=== PATIENT | male | born 1990 | race Two or more races ===

== ENCOUNTER 2016-08-06 18:48 | Emergency (ER) | payer MEDICARE, MEDICAID ==
[~2016-08-06] VITALS: Ht 170.2 cm; Wt 72.6 kg
[~2016-08-06 18:48] MED LIST: OXCA300T50 PO; PHEN32.49 PO
[2016-08-06 20:23] VITALS: BP 134/90
[2016-08-06] MEDS ORDERED: KETOROLAC TROMETH 30 MG/ML 1ML VIAL IV ONE (21:15)
== END 2016-08-06 21:38 | disposition home or self-care (01) ==
LOC: ER 18:57
DX: R51 Headache (principal); M54.5 Low back pain; F17.210 Nicotine dependence, cigarettes, uncomplicated; Y08.89XA Assault by other specified means, initial encounter; Y93.89 Activity, other specified; Y99.8 Other external cause status; Y92.89 Other specified places as the place of occurrence of the external cause
CPT/HCPCS: 70450; 96374; 99284; J1885

== ENCOUNTER 2019-04-11 09:19 | Emergency (ER) | payer MEDICAID, MEDICARE ==
[~2019-04-11 09:19] MED LIST changes: +PHEN32.44 PO; -PHEN32.49 PO
[2019-04-11 09:25] VITALS: BP 124/73
== END 2019-04-11 12:02 | disposition home or self-care (01) ==
LOC: ER 09:19
DX: J06.9 Acute upper respiratory infection, unspecified (principal); J45.909 Unspecified asthma, uncomplicated; F17.210 Nicotine dependence, cigarettes, uncomplicated

== ENCOUNTER → 2019-04-27 | Emergency (ER) | payer MEDICARE, MEDICAID ==
[~2019-04-27] VITALS: Ht 154.9 cm; Wt 72.6 kg
[2019-04-27 12:05] LABS: Basophils # (auto) 0 uL; Eosinophils # (auto) 0 uL; Eosinophils % (auto) 0.7 % (0.0-7.0); Hemoglobin 15.8 g/dL (13.5-17.5); Lymphocytes # (auto) 1.2 uL; Lymphocytes % (auto) 24.3 % (10.0-50.0); Mean Corpuscular Hemoglobin 30.6 pg (28.0-32.0); Mean Corpuscular Hgb Conc. 33.7 g/dL (32.0-36.0); Mean Corpuscular Volume 90.8 fL (80.0-100.0); Monocytes # (auto) 0.3 uL; Monocytes % (auto) 5.9 % (0.0-12.0); Neutrophils # (auto) 3.4 uL; Neutrophils % (auto) 68.1 % (37.0-80.0); Nucleated Red Blood Cells % 0.1 %; Platelet Count (auto) 171 10^3/uL (140-450); Red Blood Cells 5.18 10^6/uL (4.5-5.90); White Blood Cell 4.9 10^3/uL (4.4-10.8)
[2019-04-27 12:22] LABS: BUN/Creatinine Ratio 16.9; Calcium 8.7 mg/dL (8.5-10.1); Potassium 3.4 mmol/L (3.5-5.1)
[2019-04-27 12:34] LABS: Bilirubin, Total 0.3 mg/dL (0.2-1.0); Total Protein 7.9 g/dL (6.4-8.2)
[2019-04-27 13:54] VITALS: BP 101/57
== END | disposition home or self-care (01) ==
LOC: ER 11:17
DX: R56.9 Unspecified convulsions (principal); J45.909 Unspecified asthma, uncomplicated
CPT/HCPCS: 36415; 80053; 80184; 85025

== ENCOUNTER → 2019-06-19 | Emergency (ER) | payer MEDICARE, MEDICAID ==
[~2019-06-19] VITALS: Ht 154.9 cm; Wt 78.5 kg
[~2019-06-19] MED LIST changes: +ACETAMINOPHEN 500 MG TAB PO ONE; +LORazepam 2MG/ML-1ML VIAL IV ONE; +PHENobarbital SODIUM 130 MG/ML VL IV ONE
[2019-06-19 23:51] LABS: Basophils # (auto) 0.1 10 ^3/uL (0-0.2); Eosinophils # (auto) 0.4 10 ^3/uL (0-0.8); Eosinophils % (auto) 4.3 % (0.0-7.0); Hematocrit 46.6 % (41.0-53.0); Hemoglobin 15.9 g/dL (13.5-17.5); Lymphocytes # (auto) 4.2 10 ^3/uL (0.4-5.4); Lymphocytes % (auto) 49.1 % (10.0-50.0); Mean Corpuscular Hemoglobin 31.1 pg (28.0-32.0); Mean Corpuscular Hgb Conc. 34.2 g/dL (32.0-36.0); Mean Corpuscular Volume 90.9 fL (80.0-100.0); Monocytes # (auto) 0.6 10 ^3/uL (0-1.3); Monocytes % (auto) 7.1 % (0.0-12.0); Neutrophils # (auto) 3.3 10 ^3/uL (1.6-8.6); Neutrophils % (auto) 38.5 % (37.0-80.0); Nucleated Red Blood Cells % 0.1 %; Platelet Count (auto) 186 10^3/uL (140-450); Red Blood Cells 5.12 10^6/uL (4.5-5.90); Red Cell Distribution Width 13.9 % (11.8-14.3); White Blood Cell 8.6 10^3/uL (4.4-10.8)
[2019-06-19 23:52] VITALS: BP 123/76
[2019-06-20 00:10] LABS: Alanine Aminotransferase 25 U/L (16-61); Albumin 4.1 g/dL (3.4-5.0); Anion Gap 12 (5-15); Aspartate Aminotransferase 16 U/L (15-37); BUN/Creatinine Ratio 11.2; Blood Urea Nitrogen 11 mg/dL (7-18); Calcium 8.4 mg/dL (8.5-10.1); Carbon Dioxide 20 mmol/L (21-32); Chloride 108 mmol/L (98-107); GFR African American 115 mL/min; GFR Non-African American 95 mL/min; Glucose 108 mg/dL (74-106); Potassium 3.5 mmol/L (3.5-5.1); Sodium 140 mmol/L (136-145)
[2019-06-20 00:13] LABS: Alkaline Phosphatase 86 U/L (45-117); Bilirubin, Total < 0.1 mg/dL (0.2-1.0); Total Protein 7.8 g/dL (6.4-8.2)
== END | disposition home or self-care (01) ==
LOC: EDUNIT# 22:41 → EDBD 22:41 → ER 22:47
DX: G40.409 Other generalized epilepsy and epileptic syndromes, not intractable, without status epilepticus (principal); J45.909 Unspecified asthma, uncomplicated; S06.9X0D Unspecified intracranial injury without loss of consciousness, subsequent encounter; V49.9XXD Car occupant (driver) (passenger) injured in unspecified traffic accident, subsequent encounter
CPT/HCPCS: 36415; 80053; 80184; 85025; 96374; 96375; 99284; J2060

== ENCOUNTER 2019-08-07 11:28 | Emergency (ER) | payer MEDICARE, MEDICAID ==
[~2019-08-07] VITALS: Ht 154.9 cm; Wt 76.7 kg
[~2019-08-07 11:28] MED LIST changes: -ACETAMINOPHEN 500 MG TAB PO ONE; -LORazepam 2MG/ML-1ML VIAL IV ONE; -PHENobarbital SODIUM 130 MG/ML VL IV ONE
[2019-08-07 13:00] VITALS: BP 136/89
[2019-08-07] MEDS ORDERED: AZITHROMYCIN 250 MG TAB PO ONE (14:30)
[2019-08-07] MEDS ORDERED: cefTRIAXone SODIUM 250 MG VL IM ONE (14:30)
[2019-08-07] MEDS ORDERED: LIDOCAINE 1% HCL (LOCAL ANESTH.) INJ 20ML MDV ONE (15:57)
== END 2019-08-07 16:10 | disposition home or self-care (01) ==
LOC: ER 11:28
DX: N39.0 Urinary tract infection, site not specified (principal); J45.909 Unspecified asthma, uncomplicated; Z79.899 Other long term (current) drug therapy
CPT/HCPCS: 96372; 99283; J0696; J2001

== ENCOUNTER 2019-10-16 06:37 | Emergency (ER) | payer MEDICARE, MEDICAID ==
[~2019-10-16] VITALS: Ht 154.9 cm; Wt 72.6 kg
[2019-10-16] MEDS ORDERED: SODIUM CHLORIDE 0.9% 1,000 ML IV ONE ×2 (06:44→06:54)
[2019-10-16] MEDS ORDERED: LORazepam 2MG/ML-1ML VIAL IV ONE (07:00)
[2019-10-16 08:16] LABS: Basophils # (auto) 0 10 ^3/uL (0-0.2); Basophils % (auto) 0.8 % (0.0-2.0); Eosinophils # (auto) 0.1 10 ^3/uL (0-0.8); Eosinophils % (auto) 2.4 % (0.0-7.0); Hematocrit 47.1 % (41.0-53.0); Hemoglobin 15.7 g/dL (13.5-17.5); Lymphocytes # (auto) 1.6 10 ^3/uL (0.4-5.4); Lymphocytes % (auto) 33.3 % (10.0-50.0); Mean Corpuscular Hemoglobin 30.4 pg (28.0-32.0); Mean Corpuscular Hgb Conc. 33.4 g/dL (32.0-36.0); Mean Corpuscular Volume 91.1 fL (80.0-100.0); Monocytes # (auto) 0.3 10 ^3/uL (0-1.3); Monocytes % (auto) 7.1 % (0.0-12.0); Neutrophils # (auto) 2.6 10 ^3/uL (1.6-8.6); Neutrophils % (auto) 56.4 % (37.0-80.0); Nucleated Red Blood Cells % 0.1 %; Platelet Count (auto) 157 10^3/uL (140-450); Red Blood Cells 5.17 10^6/uL (4.5-5.90); White Blood Cell 4.7 10^3/uL (4.4-10.8)
[2019-10-16 08:34] LABS: Urine Bacteria FEW /hpf (None Seen); Urine Blood Negative /uL (Negative); Urine Mucus FEW (None Seen); Urine Specific Gravity 1.019 (1.001-1.035); Urine WBC <1 /hpf (0 - 3)
[2019-10-16 08:40] LABS: Potassium 3.9 mmol/L (3.5-5.1)
[2019-10-16 08:48] LABS: Amphetamine Screen, Urine NEGATIVE (NEGATIVE); Barbiturate Scree,Urine NEGATIVE (NEGATIVE); Benzodiazephine Screen, Urine NEGATIVE (NEGATIVE); Cannabinoid Screen, Urine NEGATIVE (NEGATIVE); Cocaine Screen, Urine NEGATIVE (NEGATIVE); Opiate Scree,Urine NEGATIVE (NEGATIVE); Phencyclidine Screen, Urine NEGATIVE (NEGATIVE)
[2019-10-16 08:48] LABS: Albumin 3.8 g/dL (3.4-5.0); BUN/Creatinine Ratio 16.3; Bilirubin, Total 0.4 mg/dL (0.2-1.0); Calcium 8.5 mg/dL (8.5-10.1); Total Protein 7.3 g/dL (6.4-8.2)
[2019-10-16 09:00] VITALS: BP 117/77
[2019-10-16 09:08] LABS: Alcohol, Urine < 0.3 mg/dL (0-10)
== END 2019-10-16 09:24 | disposition home or self-care (01) ==
LOC: EDBD 06:37 → ER 06:37
DX: G40.409 Other generalized epilepsy and epileptic syndromes, not intractable, without status epilepticus (principal); F41.9 Anxiety disorder, unspecified; J45.909 Unspecified asthma, uncomplicated
CPT/HCPCS: 36415; 70450; 80053; 80307; 81001; 85025; 96361; 96374; 99284; J2060; J7030

== ENCOUNTER 2019-11-22 03:40 | Emergency (ER) | payer MEDICARE, MEDICAID ==
[~2019-11-22] VITALS: Ht 154.9 cm; Wt 86.2 kg
[2019-11-22 04:02] VITALS: BP 115/78
[2019-11-22 04:29] LABS: Basophils # (auto) 0.1 10 ^3/uL (0-0.2); Eosinophils # (auto) 0.2 10 ^3/uL (0-0.8); Eosinophils % (auto) 3.5 % (0.0-7.0); Hematocrit 46.2 % (41.0-53.0); Hemoglobin 15.5 g/dL (13.5-17.5); Lymphocytes % (auto) 39.2 % (10.0-50.0); Mean Corpuscular Hemoglobin 30.6 pg (28.0-32.0); Mean Corpuscular Hgb Conc. 33.6 g/dL (32.0-36.0); Mean Corpuscular Volume 91.3 fL (80.0-100.0); Monocytes # (auto) 0.4 10 ^3/uL (0-1.3); Monocytes % (auto) 7.7 % (0.0-12.0); Neutrophils # (auto) 2.5 10 ^3/uL (1.6-8.6); Neutrophils % (auto) 48.6 % (37.0-80.0); Nucleated Red Blood Cells % 0.1 %; Platelet Count (auto) 152 10^3/uL (140-450); Red Blood Cells 5.06 10^6/uL (4.5-5.90); Red Cell Distribution Width 13.4 % (11.8-14.3); White Blood Cell 5.1 10^3/uL (4.4-10.8)
[2019-11-22 04:50] LABS: Albumin 3.6 g/dL (3.4-5.0); Calcium 8.7 mg/dL (8.5-10.1); Potassium 3.9 mmol/L (3.5-5.1)
[2019-11-22 04:54] LABS: BUN/Creatinine Ratio 14.5; Bilirubin, Total 0.2 mg/dL (0.2-1.0); Total Protein 7.3 g/dL (6.4-8.2)
== END 2019-11-22 07:33 | disposition home or self-care (01) ==
LOC: EDBD 03:40 → ER 03:41
DX: G40.909 Epilepsy, unspecified, not intractable, without status epilepticus (principal); J45.909 Unspecified asthma, uncomplicated; Z79.899 Other long term (current) drug therapy
CPT/HCPCS: 36415; 80053; 85025; 93005

== ENCOUNTER 2021-12-10 22:09 | Emergency (ER) | payer MEDICARE, MEDICAID ==
[~2021-12-10] VITALS: Ht 154.9 cm; Wt 82.0 kg
[2021-12-11 00:11] LABS: Basophils # (auto) 0.1 10 ^3/uL (0-0.2); Basophils % (auto) 1.4 % (0.0-2.0); Eosinophils # (auto) 0.2 10 ^3/uL (0-0.8); Eosinophils % (auto) 2.8 % (0.0-7.0); Hematocrit 43.8 % (41.0-53.0); Lymphocytes # (auto) 2.7 10 ^3/uL (0.4-5.4); Lymphocytes % (auto) 46.1 % (10.0-50.0); Mean Corpuscular Hemoglobin 30.8 pg (28.0-32.0); Mean Corpuscular Hgb Conc. 34.3 g/dL (32.0-36.0); Mean Corpuscular Volume 89.6 fL (80.0-100.0); Monocytes # (auto) 0.4 10 ^3/uL (0-1.3); Monocytes % (auto) 7.3 % (0.0-12.0); Neutrophils # (auto) 2.5 10 ^3/uL (1.6-8.6); Neutrophils % (auto) 42.4 % (37.0-80.0); Nucleated Red Blood Cells % 0.1 %; Red Blood Cells 4.88 10^6/uL (4.5-5.90); Red Cell Distribution Width 13.3 % (11.8-14.3); White Blood Cell 5.9 10^3/uL (4.4-10.8)
[2021-12-11 00:33] LABS: Albumin 3.5 g/dL (3.4-5.0); Anion Gap 8 (5-15); Calcium 8.2 mg/dL (8.5-10.1); Carbon Dioxide 25 mmol/L (21-32); Chloride 109 mmol/L (98-107); Glucose 132 mg/dL (74-106); Potassium 3.3 mmol/L (3.5-5.1); Sodium 142 mmol/L (136-145)
[2021-12-11 00:36] LABS: Alanine Aminotransferase 30 U/L (16-61); Aspartate Aminotransferase 17 U/L (15-37); BUN/Creatinine Ratio 18.4; Blood Alcohol < 3.0 mg/dL (0-5); Blood Urea Nitrogen 14 mg/dL (7-18); GFR African American 152 mL/min; GFR Non-African American 126 mL/min
[2021-12-11 00:38] LABS: Acetaminophen < 2.0 ug/mL (10-30); Salicylate < 1.7 mg/dL (2.8-20.0)
[2021-12-11 00:39] LABS: Alkaline Phosphatase 73 U/L (45-117); Bilirubin, Total 0.2 mg/dL (0.2-1.0); Total Protein 6.7 g/dL (6.4-8.2)
[2021-12-11] MEDS ORDERED: levETIRAcetam 500 MG/5ML INJ IV ONE (04:14)
[2021-12-11 08:00] VITALS: BP 113/71
== END 2021-12-11 08:29 | disposition home or self-care (01) ==
LOC: ER 22:09 → EDBD 22:09 → ER 12-11 08:29
DX: G40.409 Other generalized epilepsy and epileptic syndromes, not intractable, without status epilepticus (principal); J45.909 Unspecified asthma, uncomplicated; Z86.69 Personal history of other diseases of the nervous system and sense organs
CPT/HCPCS: 36415; 70450; 71045; 80053; 80320; 80329; 82962; 84484; 85025; 93005; 96365; 99285; J1953; J7060

== ENCOUNTER 2022-01-21 10:15 | Inpatient (IN) | payer MEDICARE, MEDICAID ==
[~2022-01-21] VITALS: Ht 162.6 cm; Wt 83.6 kg
[2022-01-21] MEDS ORDERED: LORazepam 2MG/ML-1ML VIAL ONE (10:21)
[2022-01-21] MEDS ORDERED: LORazepam 2MG/ML-1ML VIAL IV ONE (10:30)
[2022-01-21] MEDS ORDERED: SODIUM CHLORIDE 0.9% 1,000 ML IV ONE (10:30)
[2022-01-21 10:46] LABS: Basophils # (auto) 0 10 ^3/uL (0-0.2); Eosinophils # (auto) 0 10 ^3/uL (0-0.8); Eosinophils % (auto) 0.5 % (0.0-7.0); Hematocrit 47.1 % (41.0-53.0); Hemoglobin 15.9 g/dL (13.5-17.5); Lymphocytes # (auto) 0.9 10 ^3/uL (0.4-5.4); Lymphocytes % (auto) 18.8 % (10.0-50.0); Mean Corpuscular Hemoglobin 30.5 pg (28.0-32.0); Mean Corpuscular Hgb Conc. 33.7 g/dL (32.0-36.0); Mean Corpuscular Volume 90.5 fL (80.0-100.0); Monocytes # (auto) 0.3 10 ^3/uL (0-1.3); Monocytes % (auto) 6.4 % (0.0-12.0); Neutrophils # (auto) 3.6 10 ^3/uL (1.6-8.6); Neutrophils % (auto) 73.3 % (37.0-80.0); Nucleated Red Blood Cells % 0.2 %; Red Cell Distribution Width 13.8 % (11.8-14.3); White Blood Cell 4.9 10^3/uL (4.4-10.8)
[2022-01-21 11:45] LABS: Albumin 3.9 g/dL (3.4-5.0); BUN/Creatinine Ratio 13.2; Bilirubin, Total 0.4 mg/dL (0.2-1.0); Calcium 8.8 mg/dL (8.5-10.1); Potassium 3.8 mmol/L (3.5-5.1); Total Protein 7.2 g/dL (6.4-8.2)
[2022-01-21] MEDS ORDERED: ACETAMINOPHEN 325 MG TAB PO PRN (12:45)
[2022-01-21] MEDS ORDERED: LORazepam 2MG/ML-1ML VIAL IV PRN (12:45)
[2022-01-21] MEDS ORDERED: PHENobarbital SODIUM INJ 600 MG in SODIUM CHL 0.9% 100 ML IV ONE (14:00)
[2022-01-21] MEDS: OXcarbazepine 300 MG TAB PO SCH ×2 (14:10→22:07)
[2022-01-21] MEDS: PHENobarbital 32.4 MG TAB PO SCH ×2 (14:10→22:07)
[2022-01-21] MEDS: SODIUM CHLORIDE 0.9% 1,000 ML IV SCH (18:24)
[2022-01-21 23:54] VITALS: BP 105/71
[2022-01-22 00:30] LABS: Alcohol, Urine < 3.0 mg/dL (0-10); Amphetamine Screen, Urine NEGATIVE (NEGATIVE); Barbiturate Scree,Urine POSITIVE (NEGATIVE); Benzodiazephine Screen, Urine NEGATIVE (NEGATIVE); Cannabinoid Screen, Urine NEGATIVE (NEGATIVE); Cocaine Screen, Urine NEGATIVE (NEGATIVE); Opiate Scree,Urine NEGATIVE (NEGATIVE); Phencyclidine Screen, Urine NEGATIVE (NEGATIVE)
[2022-01-22 00:52] LABS: Urine Bacteria NONE SEEN /hpf (None Seen); Urine Blood Negative /uL (Negative); Urine Specific Gravity 1.019 (1.001-1.035); Urine WBC 1 /hpf (0 - 3)
[2022-01-22 05:00] VITALS: BP 96/48
[2022-01-22] MEDS: SODIUM CHLORIDE 0.9% 1,000 ML IV SCH (05:20)
[2022-01-22 07:07] LABS: Basophils # (auto) 0 10 ^3/uL (0-0.2); Basophils % (auto) 0.8 % (0.0-2.0); Eosinophils # (auto) 0.1 10 ^3/uL (0-0.8); Eosinophils % (auto) 3.1 % (0.0-7.0); Hematocrit 45.8 % (41.0-53.0); Hemoglobin 15.2 g/dL (13.5-17.5); Lymphocytes # (auto) 0.9 10 ^3/uL (0.4-5.4); Lymphocytes % (auto) 23.3 % (10.0-50.0); Mean Corpuscular Hemoglobin 30.3 pg (28.0-32.0); Mean Corpuscular Hgb Conc. 33.1 g/dL (32.0-36.0); Mean Corpuscular Volume 91.7 fL (80.0-100.0); Monocytes # (auto) 0.4 10 ^3/uL (0-1.3); Monocytes % (auto) 9.8 % (0.0-12.0); Neutrophils # (auto) 2.4 10 ^3/uL (1.6-8.6); Nucleated Red Blood Cells % 0.1 %; Red Cell Distribution Width 13.8 % (11.8-14.3); White Blood Cell 3.8 10^3/uL (4.4-10.8)
[2022-01-22 07:37] LABS: Albumin 3.1 g/dL (3.4-5.0); BUN/Creatinine Ratio 16.9; Bilirubin, Total 0.4 mg/dL (0.2-1.0); Calcium 7.7 mg/dL (8.5-10.1); Potassium 3.8 mmol/L (3.5-5.1); Total Protein 5.8 g/dL (6.4-8.2)
[2022-01-22 09:00] VITALS: BP 120/79
[2022-01-22] MEDS ORDERED: ENOXAPARIN SOD 40 MG/0.4 ML SYRINGE SC SCH (10:00)
[2022-01-22] MEDS: OXcarbazepine 300 MG TAB PO SCH (10:34)
[2022-01-22] MEDS: PHENobarbital 32.4 MG TAB PO SCH (10:34)
== END 2022-01-22 13:54 | disposition left against medical advice (07) | DRG 101 ==
LOC: ER 10:15 → EDBD 10:15 → OVERFLOW 12:34 → EAST 23:19
PROVIDERS: ADMIT Nurse Practitioner Family; ATTEND Family Medicine
DX: G40.909 Epilepsy, unspecified, not intractable, without status epilepticus (principal); J45.909 Unspecified asthma, uncomplicated; Z53.29 Procedure and treatment not carried out because of patient's decision for other reasons; Z83.3 Family history of diabetes mellitus; Z87.891 Personal history of nicotine dependence; Z20.822 Contact with and (suspected) exposure to COVID-19; Z91.199 Patient's noncompliance with other medical treatment and regimen due to unspecified reason
CPT/HCPCS: 36415; 70450; 71045; 80053; 80184; 80307; 81001; 84484; 85025; 87426; 93005; 96361; 96365; G0378

== ENCOUNTER 2022-03-24 13:49 | Emergency (ER) | payer MEDICARE, MEDICAID ==
[~2022-03-24] VITALS: Ht 154.9 cm; Wt 81.7 kg
[2022-03-24 14:54] LABS: Basophils # (auto) 0.1 10 ^3/uL (0-0.2); Basophils % (auto) 0.7 % (0.0-2.0); Eosinophils # (auto) 0.1 10 ^3/uL (0-0.8); Eosinophils % (auto) 1.3 % (0.0-7.0); Hematocrit 47.7 % (41.0-53.0); Hemoglobin 16.2 g/dL (13.5-17.5); Lymphocytes # (auto) 2.1 10 ^3/uL (0.4-5.4); Lymphocytes % (auto) 25.3 % (10.0-50.0); Mean Corpuscular Hemoglobin 31.1 pg (28.0-32.0); Mean Corpuscular Hgb Conc. 34.1 g/dL (32.0-36.0); Mean Corpuscular Volume 91.4 fL (80.0-100.0); Monocytes # (auto) 0.5 10 ^3/uL (0-1.3); Monocytes % (auto) 6.4 % (0.0-12.0); Neutrophils # (auto) 5.4 10 ^3/uL (1.6-8.6); Neutrophils % (auto) 66.3 % (37.0-80.0); Nucleated Red Blood Cells % 0.1 %; Red Blood Cells 5.21 10^6/uL (4.5-5.90); Red Cell Distribution Width 13.5 % (11.8-14.3); White Blood Cell 8.1 10^3/uL (4.4-10.8)
[2022-03-24 14:56] LABS: Albumin 4.1 g/dL (3.4-5.0); BUN/Creatinine Ratio 21.9; Calcium 9.3 mg/dL (8.5-10.1); Potassium 4.2 mmol/L (3.5-5.1)
[2022-03-24 16:00] LABS: Bilirubin, Total 0.3 mg/dL (0.2-1.0); Total Protein 7.6 g/dL (6.4-8.2)
[2022-03-24 16:23] LABS: Urine Bacteria NONE SEEN /hpf (None Seen); Urine Blood Negative /uL (Negative); Urine WBC <1 /hpf (0 - 3)
[2022-03-24 17:39] VITALS: BP 124/73
== END 2022-03-24 17:40 | disposition home or self-care (01) ==
LOC: ER 13:49
DX: R10.12 Left upper quadrant pain (principal); R07.81 Pleurodynia; J45.909 Unspecified asthma, uncomplicated; Z79.899 Other long term (current) drug therapy
CPT/HCPCS: 36415; 74176; 80053; 81001; 85025

== ENCOUNTER 2022-04-08 09:23 | Emergency (ER) | payer MEDICARE, MEDICAID ==
[~2022-04-08] VITALS: Ht 157.5 cm; Wt 80.0 kg
[2022-04-08] MEDS ORDERED: LORazepam 2MG/ML-1ML VIAL ONE (09:35)
[2022-04-08] MEDS ORDERED: LORazepam 2MG/ML-1ML VIAL IV ONE (09:45)
[2022-04-08 10:06] LABS: Basophils # (auto) 0 10 ^3/uL (0-0.2); Basophils % (auto) 0.9 % (0.0-2.0); Eosinophils # (auto) 0 10 ^3/uL (0-0.8); Eosinophils % (auto) 0.6 % (0.0-7.0); Hematocrit 47.7 % (41.0-53.0); Hemoglobin 15.6 g/dL (13.5-17.5); Lymphocytes # (auto) 1.6 10 ^3/uL (0.4-5.4); Lymphocytes % (auto) 31.5 % (10.0-50.0); Mean Corpuscular Hemoglobin 30.3 pg (28.0-32.0); Mean Corpuscular Hgb Conc. 32.6 g/dL (32.0-36.0); Mean Corpuscular Volume 92.7 fL (80.0-100.0); Monocytes # (auto) 0.3 10 ^3/uL (0-1.3); Monocytes % (auto) 5.5 % (0.0-12.0); Neutrophils % (auto) 61.5 % (37.0-80.0); Nucleated Red Blood Cells % 0.1 %; Red Blood Cells 5.15 10^6/uL (4.5-5.90); Red Cell Distribution Width 13.4 % (11.8-14.3); White Blood Cell 4.9 10^3/uL (4.4-10.8)
[2022-04-08 10:23] LABS: Potassium 3.6 mmol/L (3.5-5.1)
[2022-04-08] MEDS ORDERED: SODIUM CHLORIDE 0.9% 1,000 ML IV ONE (10:30)
[2022-04-08 10:31] LABS: Albumin 4.1 g/dL (3.4-5.0); Bilirubin, Total 0.4 mg/dL (0.2-1.0); Calcium 8.4 mg/dL (8.5-10.1); Total Protein 7.4 g/dL (6.4-8.2)
[2022-04-08 10:53] LABS: Blood Alcohol < 3.0 mg/dL (0-5); Magnesium 1.9 mg/dL (1.6-2.6)
[2022-04-08 13:17] LABS: Urine Bacteria NONE SEEN /hpf (None Seen); Urine Blood Negative /uL (Negative); Urine Mucus FEW (None Seen); Urine Specific Gravity 1.013 (1.001-1.035); Urine WBC 1 /hpf (0 - 3)
[2022-04-08 13:26] LABS: Alcohol, Urine < 3.0 mg/dL (0-10); Amphetamine Screen, Urine NEGATIVE (NEGATIVE); Barbiturate Scree,Urine NEGATIVE (NEGATIVE); Benzodiazephine Screen, Urine NEGATIVE (NEGATIVE); Cannabinoid Screen, Urine NEGATIVE (NEGATIVE); Cocaine Screen, Urine NEGATIVE (NEGATIVE); Opiate Scree,Urine NEGATIVE (NEGATIVE); Phencyclidine Screen, Urine NEGATIVE (NEGATIVE)
[2022-04-08 16:00] VITALS: BP 133/76
[2022-04-08] MEDS ORDERED: PHENobarbital 32.4 MG TAB PO ONE (16:15)
== END 2022-04-08 16:30 | disposition home or self-care (01) ==
LOC: ER 09:23
DX: G40.909 Epilepsy, unspecified, not intractable, without status epilepticus (principal); F10.10 Alcohol abuse, uncomplicated; J45.909 Unspecified asthma, uncomplicated; Y90.0 Blood alcohol level of less than 20 mg/100 ml
CPT/HCPCS: 36415; 70450; 71045; 80053; 80184; 80307; 80320; 81001; 83735; 85025; 96361; 96374; 99285; J2060; J7030

== ENCOUNTER 2022-04-24 09:12 | Emergency (ER) | payer MEDICARE, MEDICAID ==
[~2022-04-24] VITALS: Ht 154.9 cm; Wt 81.8 kg
[2022-04-24] MEDS ORDERED: SODIUM CHLORIDE 0.9% 1,000 ML IVB ONE (09:30)
[2022-04-24 09:51] LABS: Basophils # (auto) 0 10 ^3/uL (0-0.2); Basophils % (auto) 0.4 % (0.0-2.0); Eosinophils # (auto) 0 10 ^3/uL (0-0.8); Eosinophils % (auto) 0.8 % (0.0-7.0); Hematocrit 45.1 % (41.0-53.0); Hemoglobin 15.5 g/dL (13.5-17.5); Lymphocytes # (auto) 0.8 10 ^3/uL (0.4-5.4); Lymphocytes % (auto) 18.5 % (10.0-50.0); Mean Corpuscular Hemoglobin 31.6 pg (28.0-32.0); Mean Corpuscular Hgb Conc. 34.3 g/dL (32.0-36.0); Mean Corpuscular Volume 92.1 fL (80.0-100.0); Monocytes # (auto) 0.4 10 ^3/uL (0-1.3); Monocytes % (auto) 8.5 % (0.0-12.0); Neutrophils # (auto) 3.3 10 ^3/uL (1.6-8.6); Neutrophils % (auto) 71.8 % (37.0-80.0); Nucleated Red Blood Cells % 0.1 %; Red Cell Distribution Width 13.3 % (11.8-14.3); White Blood Cell 4.5 10^3/uL (4.4-10.8)
[2022-04-24 10:04] LABS: Albumin 3.4 g/dL (3.4-5.0); Calcium 7.4 mg/dL (8.5-10.1); Magnesium 2.1 mg/dL (1.6-2.6); Potassium 3.5 mmol/L (3.5-5.1)
[2022-04-24 10:09] LABS: BUN/Creatinine Ratio 24.6; Bilirubin, Total 0.2 mg/dL (0.2-1.0); Total Protein 6.6 g/dL (6.4-8.2)
[2022-04-24] MEDS ORDERED: ONDA-144 PO (11:30)
[2022-04-24 11:35] VITALS: BP 112/74
== END 2022-04-24 12:14 | disposition home or self-care (01) ==
LOC: EDBD 09:12 → ER 09:14
DX: R56.9 Unspecified convulsions (principal); R11.2 Nausea with vomiting, unspecified; Z79.899 Other long term (current) drug therapy
CPT/HCPCS: 36415; 70450; 80053; 80320; 83735; 85025; 93005; 96360; 99285; J7030

== ENCOUNTER 2022-07-02 12:53 | Inpatient (IN) | payer MEDICARE, MEDICAID ==
[~2022-07-02] VITALS: Ht 154.9 cm; Wt 74.6 kg
[~2022-07-02 12:53] MED LIST changes: +ONDA-144 PO
[2022-07-02 13:42] LABS: Basophils # (auto) 0.1 10 ^3/uL (0-0.2); Basophils % (auto) 1.3 % (0.0-2.0); Eosinophils # (auto) 0.2 10 ^3/uL (0-0.8); Eosinophils % (auto) 3.5 % (0.0-7.0); Hematocrit 44.1 % (41.0-53.0); Hemoglobin 14.8 g/dL (13.5-17.5); Lymphocytes # (auto) 1.8 10 ^3/uL (0.4-5.4); Lymphocytes % (auto) 32.7 % (10.0-50.0); Mean Corpuscular Hemoglobin 30.7 pg (28.0-32.0); Mean Corpuscular Hgb Conc. 33.5 g/dL (32.0-36.0); Mean Corpuscular Volume 91.7 fL (80.0-100.0); Monocytes # (auto) 0.5 10 ^3/uL (0-1.3); Monocytes % (auto) 9.4 % (0.0-12.0); Neutrophils % (auto) 53.1 % (37.0-80.0); Nucleated Red Blood Cells % 0.1 %; Red Blood Cells 4.81 10^6/uL (4.5-5.90); Red Cell Distribution Width 13.7 % (11.8-14.3); White Blood Cell 5.6 10^3/uL (4.4-10.8)
[2022-07-02 14:16] LABS: Calcium 8.8 mg/dL (8.5-10.1); Potassium 3.8 mmol/L (3.5-5.1)
[2022-07-02 14:19] LABS: BUN/Creatinine Ratio 12.6 (10.0-20.0); Bilirubin, Total 0.2 mg/dL (0.2-1.0); Total Protein 6.9 g/dL (6.4-8.2)
[2022-07-02 15:00] LABS: Urine Bacteria NONE SEEN /hpf (None Seen); Urine Blood Negative /uL (Negative); Urine Mucus FEW (None Seen); Urine Specific Gravity 1.024 (1.001-1.035); Urine WBC <1 /hpf (0 - 3)
[2022-07-02] MEDS ORDERED: IOHEXOL 350 MG/ML 100ML IJ ONE (16:28)
[2022-07-02] MEDS ORDERED: IPRATROPIUM BROM 0.5 MG/2.5ML INH SOL NEB PRN (18:15)
[2022-07-02] MEDS ORDERED: NITROGLYCERIN 0.4 MG SL TAB SL PRN (18:15)
[2022-07-02] MEDS ORDERED: ACETAMINOPHEN 325 MG TAB PO PRN (18:15)
[2022-07-02] MEDS ORDERED: ALBUTEROL SULF 2.5 MG/0.5ML(0.5%) NEB SOLN NEB PRN (18:15)
[2022-07-02] MEDS ORDERED: ONDANSETRON HCL 4 MG/2 ML VIAL IV PRN (18:15)
[2022-07-02] MEDS ORDERED: MORPHINE SULFATE 4 MG/ML SYR/VIAL IV PRN (18:15)
[2022-07-02] MEDS ORDERED: ATORVASTATIN 20 MG TAB PO SCH (22:00)
[2022-07-02] MEDS: methylPREDNISolone SOD SUCC 125 MG/2 ML VL IV SCH (23:03)
[2022-07-02] MEDS: PHENobarbital 32.4 MG TAB PO SCH (23:42)
[2022-07-02] MEDS: OXcarbazepine 300 MG TAB PO SCH (23:42)
[2022-07-03] MEDS: methylPREDNISolone SOD SUCC 125 MG/2 ML VL IV SCH ×2 (06:16→13:56)
[2022-07-03 06:35] LABS: Basophils # (auto) 0 10 ^3/uL (0-0.2); Basophils % (auto) 0.5 % (0.0-2.0); Eosinophils # (auto) 0 10 ^3/uL (0-0.8); Eosinophils % (auto) 0.3 % (0.0-7.0); Hematocrit 44.2 % (41.0-53.0); Hemoglobin 15.1 g/dL (13.5-17.5); Lymphocytes # (auto) 0.9 10 ^3/uL (0.4-5.4); Mean Corpuscular Hemoglobin 31.4 pg (28.0-32.0); Mean Corpuscular Hgb Conc. 34.1 g/dL (32.0-36.0); Mean Corpuscular Volume 92.1 fL (80.0-100.0); Monocytes # (auto) 0.1 10 ^3/uL (0-1.3); Monocytes % (auto) 1.8 % (0.0-12.0); Neutrophils % (auto) 75.4 % (37.0-80.0); Nucleated Red Blood Cells % 0.1 %; Red Cell Distribution Width 13.6 % (11.8-14.3)
[2022-07-03 06:42] LABS: Albumin 3.7 g/dL (3.4-5.0); Calcium 8.8 mg/dL (8.5-10.1)
[2022-07-03 06:45] LABS: BUN/Creatinine Ratio 21.1 (10.0-20.0)
[2022-07-03 06:47] LABS: Bilirubin, Total 0.2 mg/dL (0.2-1.0); Total Protein 7.4 g/dL (6.4-8.2)
[2022-07-03] MEDS: PHENobarbital 32.4 MG TAB PO SCH (09:11)
[2022-07-03] MEDS: OXcarbazepine 300 MG TAB PO SCH (09:12)
[2022-07-03 09:36] VITALS: BP 106/60
[2022-07-03] MEDS ORDERED: ENOXAPARIN SOD 40 MG/0.4 ML SYRINGE SC ONE (10:00)
[2022-07-03] MEDS ORDERED: LISINOPRIL 5 MG TAB PO SCH (10:00)
[2022-07-03] MEDS ORDERED: ASPirin 81 mg TAB PO SCH (10:00)
[2022-07-03] MEDS ORDERED: DOCUSATE SOD 100 MG CAP PO SCH (10:00)
[2022-07-03 10:44] VITALS: BP 106/60
[2022-07-03] MEDS ORDERED: LACO50TA2 PO (10:54)
[2022-07-03] MEDS ORDERED: ALBUAER3 IN (15:52)
[2022-07-03 16:06] VITALS: BP 124/68
== END 2022-07-03 16:50 | disposition home or self-care (01) | DRG 189 ==
LOC: ER 13:03 → TELE 18:15 → TELE-WESTW 07-03 10:24
PROVIDERS: ADMIT Nurse Practitioner Family; ATTEND Nurse Practitioner Acute Care
DX: J96.01 Acute respiratory failure with hypoxia (principal); I24.9 Acute ischemic heart disease, unspecified; J45.901 Unspecified asthma with (acute) exacerbation; Z86.73 Personal history of transient ischemic attack (TIA), and cerebral infarction without residual deficits; G40.909 Epilepsy, unspecified, not intractable, without status epilepticus
CPT/HCPCS: 36415; 71045; 71275; 80053; 81001; 83880; 84484; 85025; 85379; 96374; G0378

== ENCOUNTER 2023-01-30 13:01 | Inpatient (IN) | payer MEDICARE, MEDICAID ==
[~2023-01-30] VITALS: Ht 172.7 cm; Wt 82.0 kg
[~2023-01-30 13:01] MED LIST changes: +ALBUAER3 IN; +LACO50TA2 PO; -ONDA-144 PO
[2023-01-30 13:15] VITALS: PULSE 68; RESP 14; O2SAT 94
[2023-01-30] MEDS ORDERED: SODIUM CHLORIDE 0.9% 1,000 ML IV ONE ×2 (13:15)
[2023-01-30 14:03] LABS: Basophils # (auto) 0.1 10 ^3/uL (0-0.2); Basophils % (auto) 0.9 % (0.0-2.0); Eosinophils # (auto) 0.1 10 ^3/uL (0-0.8); Eosinophils % (auto) 1.1 % (0.0-7.0); Hematocrit 44.9 % (41.0-53.0); Hemoglobin 15.1 g/dL (13.5-17.5); Lymphocytes # (auto) 1.5 10 ^3/uL (0.4-5.4); Lymphocytes % (auto) 24.6 % (10.0-50.0); Mean Corpuscular Hemoglobin 31.1 pg (28.0-32.0); Mean Corpuscular Hgb Conc. 33.6 g/dL (32.0-36.0); Mean Corpuscular Volume 92.4 fL (80.0-100.0); Monocytes # (auto) 0.4 10 ^3/uL (0-1.3); Monocytes % (auto) 6.2 % (0.0-12.0); Neutrophils % (auto) 67.2 % (37.0-80.0); Nucleated Red Blood Cells % 0.1 %; Red Blood Cells 4.86 10^6/uL (4.5-5.90); Red Cell Distribution Width 13.1 % (11.8-14.3)
[2023-01-30 14:18] LABS: Alanine Aminotransferase 24 U/L (7-40); Alkaline Phosphatase 64 U/L (46-116); Anion Gap 5 (5-15); Aspartate Aminotransferase 17 U/L (13-40); BUN/Creatinine Ratio 15.4 (10.0-20.0); Blood Urea Nitrogen 10 mg/dL (9-23); Calcium 8.8 mg/dL (8.7-10.4); Carbon Dioxide 27 mmol/L (20-30); Chloride 106 mmol/L (98-107); Glucose 113 mg/dL (74-106); Potassium 3.3 mmol/L (3.5-5.1); Sodium 138 mmol/L (136-145)
[2023-01-30 14:19] LABS: Albumin 4.5 g/dL (3.2-4.8); Bilirubin, Total 0.3 mg/dL (0.2-1.0)
[2023-01-30 16:47] LABS: Urine Bacteria NONE SEEN /hpf (None Seen); Urine Blood Negative /uL (Negative); Urine Clarity Clear (Clear); Urine Color Colorless (Yellow); Urine Mucus FEW (None Seen); Urine Protein, UAD Negative (Negative); Urine Specific Gravity 1.019 (1.001-1.035); Urine Urobilinogen Normal (Negative); Urine WBC <1 /hpf (0 - 3)
[2023-01-30 20:00] VITALS: PULSE 70; RESP 16; O2SAT 96
[2023-01-30] MEDS ORDERED: levETIRAcetam 1000 mg/100ml 100 ML IV ONE (21:30)
[2023-01-30] MEDS ORDERED: LORazepam 2MG/ML-1ML VIAL IV PRN (21:30)
[2023-01-30] MEDS ORDERED: MORPHINE SULFATE INJ 2 MG/ml SYRG IV PRN (21:30)
[2023-01-30] MEDS ORDERED: TEMAZEPAM 15 MG CAP PO PRN (21:30)
[2023-01-30] MEDS ORDERED: ALBUTEROL MEDNEB 2.5 mg/3ml NEB NEB PRN (21:30)
[2023-01-30] MEDS ORDERED: ONDANSETRON HCL 4 MG/2 ML VIAL IV PRN (21:30)
[2023-01-30] MEDS ORDERED: NITROGLYCERIN 0.4 MG SL TAB SL PRN (21:30)
[2023-01-30] MEDS ORDERED: ACETAMINOPHEN 325 MG TAB PO PRN (21:30)
[2023-01-30] MEDS: OXcarbazepine 300 MG TAB PO SCH (22:09)
[2023-01-30] MEDS: PHENobarbital 32.4 MG TAB PO SCH (22:09)
[2023-01-30 22:18] VITALS: BP 108/75; PULSE 71; RESP 17; TEMP 97.8; O2SAT 99
[2023-01-31 04:25] LABS: Anion Gap 6 (5-15); Calcium 8.1 mg/dL (8.7-10.4); Carbon Dioxide 25 mmol/L (20-30); Chloride 110 mmol/L (98-107); Potassium 3.8 mmol/L (3.5-5.1); Sodium 141 mmol/L (136-145)
[2023-01-31 04:31] LABS: BUN/Creatinine Ratio 11.1 (10.0-20.0); Blood Urea Nitrogen 7 mg/dL (9-23); Glucose 93 mg/dL (74-106)
[2023-01-31 07:39] VITALS: BP 108/71; PULSE 77; RESP 15; TEMP 97.9; O2SAT 94; O2SAT 95
[2023-01-31] MEDS: OXcarbazepine 300 MG TAB PO SCH (09:39)
[2023-01-31] MEDS: PHENobarbital 32.4 MG TAB PO SCH (09:56)
[2023-01-31] MEDS ORDERED: LACOSAMIDE 50 MG TAB PO SCH (10:00)
== END 2023-01-31 10:11 | disposition left against medical advice (07) | DRG 101 ==
LOC: EDBD 13:01 → ER 13:01 → TELE 21:28
PROVIDERS: ADMIT Nurse Practitioner; ATTEND Nurse Practitioner
DX: G40.909 Epilepsy, unspecified, not intractable, without status epilepticus (principal); Z53.29 Procedure and treatment not carried out because of patient's decision for other reasons; J45.909 Unspecified asthma, uncomplicated; Z86.73 Personal history of transient ischemic attack (TIA), and cerebral infarction without residual deficits
CPT/HCPCS: 36415; 70450; 80048; 80053; 81001; 85025; 96361; 96365; G0378

== ENCOUNTER 2023-02-14 12:39 | Inpatient (IN) | payer MEDICARE, MEDICAID ==
[~2023-02-14] VITALS: Ht 154.9 cm; Wt 81.0 kg
[2023-02-14] MEDS ORDERED: levETIRAcetam 1000 mg/100ml 100 ML IV ONE (13:00)
[2023-02-14] MEDS ORDERED: LORazepam 2MG/ML-1ML VIAL IV ONE (13:00)
[2023-02-14] MEDS ORDERED: SODIUM CHLORIDE 0.9% 1,000 ML IV ONE ×2 (13:00)
[2023-02-14 13:25] LABS: Basophils # (auto) 0 10 ^3/uL (0-0.2); Basophils % (auto) 0.7 % (0.0-2.0); Eosinophils # (auto) 0 10 ^3/uL (0-0.8); Eosinophils % (auto) 0.7 % (0.0-7.0); Hematocrit 45.4 % (41.0-53.0); Hemoglobin 15.2 g/dL (13.5-17.5); Lymphocytes # (auto) 1.8 10 ^3/uL (0.4-5.4); Lymphocytes % (auto) 28.3 % (10.0-50.0); Mean Corpuscular Hemoglobin 31.1 pg (28.0-32.0); Mean Corpuscular Hgb Conc. 33.4 g/dL (32.0-36.0); Mean Corpuscular Volume 92.9 fL (80.0-100.0); Monocytes # (auto) 0.5 10 ^3/uL (0-1.3); Monocytes % (auto) 7.2 % (0.0-12.0); Neutrophils % (auto) 63.1 % (37.0-80.0); Nucleated Red Blood Cells % 0.2 %; Red Blood Cells 4.88 10^6/uL (4.5-5.90); Red Cell Distribution Width 13.6 % (11.8-14.3); White Blood Cell 6.3 10^3/uL (4.4-10.8)
[2023-02-14 13:41] LABS: Alanine Aminotransferase 29 U/L (7-40); Albumin 4.6 g/dL (3.2-4.8); Alkaline Phosphatase 61 U/L (46-116); Anion Gap 10 (5-15); Aspartate Aminotransferase 19 U/L (13-40); Bilirubin, Total 0.3 mg/dL (0.2-1.0); Calcium 9.4 mg/dL (8.5-10.1); Carbon Dioxide 23 mmol/L (20-30); Chloride 107 mmol/L (98-107); Glucose 102 mg/dL (74-106); Potassium 3.2 mmol/L (3.5-5.1); Sodium 140 mmol/L (136-145); Total Protein 7.1 g/dL (5.7-8.2)
[2023-02-14 13:45] VITALS: O2SAT 98
[2023-02-14 14:03] LABS: BUN/Creatinine Ratio 9.7 (10.0-20.0); Blood Urea Nitrogen 7 mg/dL (9-23)
[2023-02-14] MEDS ORDERED: NITROGLYCERIN 0.4 MG SL TAB SL PRN (16:15)
[2023-02-14] MEDS ORDERED: ACETAMINOPHEN 325 MG TAB PO PRN (16:15)
[2023-02-14] MEDS ORDERED: MORPHINE SULFATE INJ 2 MG/ml SYRG IV PRN (16:15)
[2023-02-14] MEDS ORDERED: ONDANSETRON HCL 4 MG/2 ML VIAL IV PRN (16:15)
[2023-02-14] MEDS ORDERED: DOCUSATE SOD 100 MG CAP PO PRN (16:15)
[2023-02-14] MEDS ORDERED: ALBUTEROL SULF 2.5 MG/0.5ML(0.5%) NEB SOLN NEB PRN (17:00)
[2023-02-14] MEDS ORDERED: IPRATROPIUM BROM 0.5 MG/2.5ML INH SOL NEB PRN (17:00)
[2023-02-14 17:12] VITALS: BP 116/81; PULSE 60; RESP 18; TEMP 98; O2SAT 98
[2023-02-14 18:15] VITALS: O2SAT 95
[2023-02-14 18:47] LABS: Urine Bacteria NONE SEEN /hpf (None Seen); Urine Blood Negative /uL (Negative); Urine Clarity Clear (Clear); Urine Color Yellow (Yellow); Urine Hyaline Cast FEW /lpf (0 - 2); Urine Mucus FEW (None Seen); Urine Protein, UAD Negative (Negative); Urine Specific Gravity 1.019 (1.001-1.035); Urine Urobilinogen Normal (Negative); Urine WBC 1 /hpf (0 - 3)
[2023-02-14 18:57] LABS: Amphetamine Screen, Urine Neg (NEGATIVE); Barbiturate Scree,Urine Pos (NEGATIVE); Benzodiazephine Screen, Urine Neg (NEGATIVE); Cannabinoid Screen, Urine Neg (NEGATIVE); Cocaine Screen, Urine Neg (NEGATIVE); Opiate Scree,Urine Neg (NEGATIVE); Phencyclidine Screen, Urine Neg (NEGATIVE)
[2023-02-14 20:03] VITALS: PULSE 75; RESP 18; O2SAT 96
[2023-02-14] MEDS: LACOSAMIDE 50 MG TAB PO SCH (21:38)
[2023-02-14] MEDS: PHENobarbital 32.4 MG TAB PO SCH (21:38)
[2023-02-14] MEDS: OXCARBAZEPINE 600 MG PO SCH (21:48)
[2023-02-14] MEDS ORDERED: LORazepam 2MG/ML-1ML VIAL IV PRN (23:30)
[2023-02-15] VITALS (9 sets, daily range): BP systolic 105–134; BP diastolic 67–87; PULSE 65–74; RESP 16–18; TEMP 97.6–98.7; O2SAT 94–97
[2023-02-15 07:02] LABS: Basophils # (auto) 0 10 ^3/uL (0-0.2); Basophils % (auto) 0.9 % (0.0-2.0); Eosinophils # (auto) 0.2 10 ^3/uL (0-0.8); Eosinophils % (auto) 3.1 % (0.0-7.0); Hematocrit 45.2 % (41.0-53.0); Hemoglobin 14.9 g/dL (13.5-17.5); Lymphocytes # (auto) 2.1 10 ^3/uL (0.4-5.4); Lymphocytes % (auto) 43.3 % (10.0-50.0); Mean Corpuscular Hemoglobin 30.9 pg (28.0-32.0); Mean Corpuscular Volume 93.4 fL (80.0-100.0); Monocytes # (auto) 0.4 10 ^3/uL (0-1.3); Monocytes % (auto) 7.7 % (0.0-12.0); Neutrophils # (auto) 2.2 10 ^3/uL (1.6-8.6); Nucleated Red Blood Cells % 0.1 %; Red Blood Cells 4.84 10^6/uL (4.5-5.90); Red Cell Distribution Width 13.4 % (11.8-14.3); White Blood Cell 4.8 10^3/uL (4.4-10.8)
[2023-02-15 07:09] LABS: Alanine Aminotransferase 26 U/L (7-40); Alkaline Phosphatase 52 U/L (46-116); Anion Gap 4 (5-15); BUN/Creatinine Ratio 13.9 (10.0-20.0); Blood Urea Nitrogen 10 mg/dL (9-23); Calcium 8.9 mg/dL (8.5-10.1); Carbon Dioxide 27 mmol/L (20-30); Chloride 110 mmol/L (98-107); Glucose 86 mg/dL (74-106); Potassium 3.9 mmol/L (3.5-5.1); Sodium 141 mmol/L (136-145)
[2023-02-15 07:10] LABS: Aspartate Aminotransferase 17 U/L (13-40); Bilirubin, Total 0.3 mg/dL (0.2-1.0); Total Protein 6.2 g/dL (5.7-8.2)
[2023-02-15] MEDS: OXCARBAZEPINE 600 MG PO SCH ×2 (10:00→21:56)
[2023-02-15] MEDS: LACOSAMIDE 50 MG TAB PO SCH ×2 (11:30→21:56)
[2023-02-15] MEDS: PHENobarbital 32.4 MG TAB PO SCH (17:38)
[2023-02-16 05:00] VITALS: BP 113/67; PULSE 84; RESP 18; TEMP 98.3; O2SAT 98
[2023-02-16 06:02] LABS: Basophils # (auto) 0.1 10 ^3/uL (0-0.2); Basophils % (auto) 0.8 % (0.0-2.0); Eosinophils # (auto) 0.2 10 ^3/uL (0-0.8); Eosinophils % (auto) 2.9 % (0.0-7.0); Hematocrit 48.8 % (41.0-53.0); Hemoglobin 16.4 g/dL (13.5-17.5); Lymphocytes # (auto) 2.5 10 ^3/uL (0.4-5.4); Lymphocytes % (auto) 36.8 % (10.0-50.0); Mean Corpuscular Hemoglobin 31.1 pg (28.0-32.0); Mean Corpuscular Hgb Conc. 33.7 g/dL (32.0-36.0); Mean Corpuscular Volume 92.4 fL (80.0-100.0); Monocytes # (auto) 0.5 10 ^3/uL (0-1.3); Monocytes % (auto) 7.4 % (0.0-12.0); Neutrophils # (auto) 3.5 10 ^3/uL (1.6-8.6); Neutrophils % (auto) 52.1 % (37.0-80.0); Red Blood Cells 5.28 10^6/uL (4.5-5.90); Red Cell Distribution Width 13.4 % (11.8-14.3); White Blood Cell 6.8 10^3/uL (4.4-10.8)
[2023-02-16 06:14] LABS: Anion Gap 8 (5-15); Carbon Dioxide 23 mmol/L (20-30); Chloride 107 mmol/L (98-107); Sodium 138 mmol/L (136-145)
[2023-02-16 06:15] LABS: Calcium 9.2 mg/dL (8.5-10.1)
[2023-02-16 06:20] LABS: BUN/Creatinine Ratio 14.9 (10.0-20.0); Blood Urea Nitrogen 11 mg/dL (9-23); Glucose 86 mg/dL (74-106)
[2023-02-16 06:49] VITALS: O2SAT 97
[2023-02-16 08:00] VITALS: PULSE 66; RESP 18; O2SAT 94
[2023-02-16] MEDS ORDERED: PHENobarbital 32.4 MG TAB PO SCH (08:00)
[2023-02-16 09:00] VITALS: BP 120/82; PULSE 71; RESP 18; TEMP 97.4; O2SAT 94
[2023-02-16] MEDS: OXCARBAZEPINE 600 MG PO SCH (10:00)
[2023-02-16] MEDS: LACOSAMIDE 50 MG TAB PO SCH (10:04)
[2023-02-16 13:00] VITALS: BP 133/91; PULSE 67; RESP 18; TEMP 98; O2SAT 96
[2023-02-16 15:10] VITALS: BP 120/82; PULSE 71; RESP 18; TEMP 36.7; O2SAT 95
== END 2023-02-16 18:00 | disposition home or self-care (01) | DRG 101 ==
LOC: EDBD 12:39 → ER 12:39 → TELE 16:45 → TELE-WESTW 23:38 → WEST WING 02-15 19:58
PROVIDERS: ADMIT Internal Medicine; ATTEND Internal Medicine
DX: G40.409 Other generalized epilepsy and epileptic syndromes, not intractable, without status epilepticus (principal); J45.909 Unspecified asthma, uncomplicated; Z86.73 Personal history of transient ischemic attack (TIA), and cerebral infarction without residual deficits
CPT/HCPCS: 36415; 70450; 71045; 80048; 80053; 80184; 80307; 81001; 85025; 96365; 99291; G0378

== ENCOUNTER 2023-03-22 09:02 | Emergency (ER) | payer MEDICARE, MEDICAID ==
[~2023-03-22] VITALS: Ht 167.6 cm; Wt 63.6 kg
[2023-03-22] MEDS ORDERED: LORazepam 2MG/ML-1ML VIAL IV ONE (09:15)
[2023-03-22 09:45] VITALS: PULSE 70; RESP 16; O2SAT 92
[2023-03-22 10:00] LABS: Urine WBC None Seen /hpf (0 - 3)
[2023-03-22 10:18] LABS: Urine Bacteria NONE SEEN /hpf (None Seen); Urine Blood Negative /uL (Negative); Urine Clarity Clear (Clear); Urine Protein, UAD Negative (Negative); Urine Specific Gravity 1.007 (1.001-1.035); Urine Urobilinogen Normal (Negative)
[2023-03-22 10:19] LABS: Urine Color Yellow (Yellow)
[2023-03-22 10:44] LABS: Basophils # (auto) 0 10 ^3/uL (0-0.2); Basophils % (auto) 0.9 % (0.0-2.0); Eosinophils # (auto) 0 10 ^3/uL (0-0.8); Eosinophils % (auto) 0.4 % (0.0-7.0); Hematocrit 45.9 % (41.0-53.0); Hemoglobin 15.4 g/dL (13.5-17.5); Lymphocytes # (auto) 1.6 10 ^3/uL (0.4-5.4); Lymphocytes % (auto) 32.8 % (10.0-50.0); Mean Corpuscular Hemoglobin 30.8 pg (28.0-32.0); Mean Corpuscular Hgb Conc. 33.6 g/dL (32.0-36.0); Mean Corpuscular Volume 91.8 fL (80.0-100.0); Monocytes # (auto) 0.3 10 ^3/uL (0-1.3); Monocytes % (auto) 6.6 % (0.0-12.0); Neutrophils # (auto) 2.9 10 ^3/uL (1.6-8.6); Neutrophils % (auto) 59.3 % (37.0-80.0); Nucleated Red Blood Cells % 0.1 %; White Blood Cell 4.9 10^3/uL (4.4-10.8)
[2023-03-22 10:53] LABS: Chloride 106 mmol/L (98-107); Potassium 3.8 mmol/L (3.5-5.1); Sodium 140 mmol/L (136-145)
[2023-03-22 10:54] LABS: Anion Gap 7 (5-15); Carbon Dioxide 27 mmol/L (20-30)
[2023-03-22 10:55] LABS: Calcium 9.4 mg/dL (8.5-10.1)
[2023-03-22 11:00] LABS: BUN/Creatinine Ratio 13.6 (10.0-20.0); Blood Urea Nitrogen 9 mg/dL (9-23); Glucose 93 mg/dL (74-106)
[2023-03-22 11:43] VITALS: BP 101/64; PULSE 72; RESP 13; TEMP 98.4; O2SAT 98
== END 2023-03-22 11:55 | disposition home or self-care (01) ==
LOC: EDBD 09:02 → ER 09:02
DX: R56.9 Unspecified convulsions (principal); J45.909 Unspecified asthma, uncomplicated; Z79.899 Other long term (current) drug therapy
CPT/HCPCS: 36415; 80048; 81001; 85025

== ENCOUNTER 2023-07-21 19:34 | Emergency (ER) | payer MEDICARE, MEDICAID ==
[~2023-07-21] VITALS: Ht 165.1 cm; Wt 77.0 kg
[~2023-07-21 19:34] MED LIST changes: +NAP500T PO; +ZOFR4T PO
[2023-07-21] MEDS ORDERED: levETIRAcetam 1000 mg/100ml 100 ML IV ONE (19:45)
[2023-07-21 20:13] LABS: Basophils # (auto) 0 10 ^3/uL (0-0.2); Basophils % (auto) 0.7 % (0.0-2.0); Eosinophils # (auto) 0.1 10 ^3/uL (0-0.8); Hemoglobin 14.3 g/dL (13.5-17.5); Lymphocytes # (auto) 1.7 10 ^3/uL (0.4-5.4); Mean Corpuscular Hemoglobin 30.4 pg (28.0-32.0); Mean Corpuscular Hgb Conc. 33.3 g/dL (32.0-36.0); Mean Corpuscular Volume 91.2 fL (80.0-100.0); Monocytes # (auto) 0.4 10 ^3/uL (0-1.3); Monocytes % (auto) 6.5 % (0.0-12.0); Neutrophils # (auto) 3.7 10 ^3/uL (1.6-8.6); Neutrophils % (auto) 61.8 % (37.0-80.0); Nucleated Red Blood Cells % 0.1 %; Red Blood Cells 4.72 10^6/uL (4.5-5.90); Red Cell Distribution Width 13.6 % (11.8-14.3); White Blood Cell 5.9 10^3/uL (4.4-10.8)
[2023-07-21 20:20] LABS: Chloride 110 mmol/L (98-107); Potassium 3.4 mmol/L (3.5-5.1); Sodium 141 mmol/L (136-145)
[2023-07-21 20:21] LABS: Anion Gap 5 (5-15); Carbon Dioxide 26 mmol/L (20-30)
[2023-07-21 20:22] LABS: Calcium 9.3 mg/dL (8.5-10.1)
[2023-07-21 20:26] LABS: BUN/Creatinine Ratio 23.8 (10.0-20.0); Blood Urea Nitrogen 20 mg/dL (9-23); Glucose 109 mg/dL (74-106)
[2023-07-21 20:27] LABS: Blood Alcohol < 3.0 mg/dL (<10)
[2023-07-22] MEDS: POTASSIUM CHL 20 Meq TABLET PO ONE (00:11)
[2023-07-22 00:40] VITALS: BP 138/78; PULSE 70; RESP 18; TEMP 98.4; O2SAT 97
== END 2023-07-22 03:46 | disposition home or self-care (01) ==
LOC: EDBD 19:34 → ER 19:34
DX: R56.9 Unspecified convulsions (principal)
CPT/HCPCS: 36415; 80048; 80320; 85025; 93005; 99284; J1953

== ENCOUNTER 2024-11-28 12:44 | Emergency (ER) | payer MEDICARE, MEDICAID ==
[~2024-11-28] VITALS: Ht 154.9 cm; Wt 102.0 kg
[2024-11-28 13:00] VITALS: PULSE 83; RESP 18; TEMP 98.3; O2SAT 95
--- NOTE | 2024-11-28 13:13 | ED.PDOC ---
HPI (NEURO) HPI Comments HPI: Poor Historian. 34-year-old male brought in by ambulance for evaluation of witnessed seizure that [place] at approximately 12:04 p.m. there was no trauma or injury or fall. Patient is on Vimpat and states compliance with his medications. He took it this morning. Per EMS, patient was postictal on their arrival and was combative but he is now back to his normal self. They said that the patient is postictal phase was very short. Patient follows with Neurology and has history of epilepsy. Pre-hospital course vital signs were stable. Past Medical History: Seizure disorder, traumatic brain injury, cerebral palsy, developmental delay Past Surgical History: Denies REVIEW OF SYSTEMS: CONSTITUTIONAL: Denies acute: fever, diaphoresis, chills, generalized weakness. HEAD: Denies acute: headache, photophobia Eyes: Denies acute: Double vision, vision loss, eye pain, eye discharge. EARS: Denies acute: tinnitus, hearing loss, ear discharge, ear pain, THROAT: Denies acute: sore throat, swelling, difficulty swallowing , pain with swallowing, change in voice. NECK: Denies acute: neck pain, neck swelling, stiff neck. HEART: Denies acute : chest pain, palpitations, LUNGS: Denies acute: SOB, wheezing, cough, hemoptysis ABDOMEN: Denies acute: abdominal pain, Nausea, Vomiting, diarrhea, melena , hematemesis, hematochezia SKIN: Denies acute: rash, redness, lesions, itchiness. EXTREMITIES: Denies acute: calf pain, numbness, tingling, weakness, denies pain in extremity. Denies acute: Low back pain. Neuro: Denies acute: focal neurological deficit, motor or sensory focal neurological deficit, dizziness, loss of bowel or bladder function, cauda equina like symptoms. : Denies acute: dysuria, hematuria, flank pain, increase in urinary frequency. PSYCH: Denies acute: hallucination, suicidal ideation, homicidal ideation. PHYSICAL EXAM: General: ----no----acute distress, awake and alert. Head: normocephalic, atraumatic. Neck: supple, trachea is midline, no swelling. Throat: Normal phonation. Eyes:, no erythema, no purulent discharge, no proptosis, no icterus. Heart: regular rate, regular rhythm, no significant murmur appreciated. Lungs: no apparent respiratory distress, Able to speak in full sentences. No wheezing, no rhonchi, no crackles. No stridors Clear to auscultation bilaterally. Abdomen: non tender to palpation, non distended, soft, no guarding, no rebound, + bowel sounds. Neuro: Awake, Alert, oriented to name, self, situation, follows commands GCS=15. Speech is normal. Skin: no petechia, no purpura, no cyanosis, non-pale, not jaundice. Lower extremities: --no - Pitting edema no deformity, no focal swelling, no calf TTP. Makes eye contact. moves all four extremities. Face: no apparent facial droop. ED COURSE: DISCLAIMER: This medical document was created using an electronic medical record system with voice recognition software and computerized dictation system. Although this document has been carefully reviewed, there might still be some phonetic and typographical errors. Occasional wrong-word or "sound-alike" substitutions may have occurred due to the inherent limitations of voice recognition software. These areas are purely typographical due to imperfections of the software programs and do not reflect any compromise in the patient's medical care. Please read the chart carefully and recognize, using context, where these substitutions have occurred. 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 Was a procedure done?: No Differential Diagnosis (SZ) Seizure: Other (SEIZUREDDX include not limited to CVA, cerebellar ischemia/infarct, carotid stenosis, vertebral/carotid artery dissection,, electrolyte abnormality, vertebrobasillary insufficiency, Intracranial mass/infection/bleed, encephalopathy, elctrolyte abnormality, thyroid disease, multiple sclerosis, hypoglycemia, drug toxicity, cardiac arrhythmia, sub- theraputic anti-convulsion medications, known seizure disorder, pseudo-seizure.) X-Ray, Labs, Meds, VS Vital Signs Date Time Temp Pulse Resp B/P (MAP) Pulse Ox O2 Delivery O2 Flow Rate FiO2 11/28/24 15:00 71 18 121/71 (88) 95 11/28/24 13:52 69 11/28/24 13:00 98.3 83 18 120/73 (89) 95 98.3 11/28/24 13:00 83 18 95 Room Air* 0 21 11/28/24 12:55 98.7 96 18 128/70 96 98.7 Lab Test 11/28/24 13:25 11/28/24 13:12 Range/Units POC Glucose 117 H 70-106 mg/dl White Blood Count 5.8 4.4-10.8 10^3/uL Red Blood Count 4.93 4.5-5.90 10^6/uL Hemoglobin 15.2 13.5-17.5 g/dL Hematocrit 44.4 41.0-53.0 % Mean Corpuscular Volume 90.1 80.0-100.0 fL Mean Corpuscular Hemoglobin 30.8 28.0-32.0 pg Mean Corpuscular Hemoglobin Concent 34.2 32.0-36.0 g/dL Red Cell Distribution Width 13.5 11.8-14.3 % Platelet Count 184 140-450 10^3/uL Mean Platelet Volume 9.4 6.9-10.8 fL Neutrophils (%) (Auto) 67.1 37.0-80.0 % Lymphocytes (%) (Auto) 24.1 10.0-50.0 % Monocytes (%) (Auto) 6.8 0.0-12.0 % Eosinophils (%) (Auto) 1.0 0.0-7.0 % Basophils (%) (Auto) 1.0 0.0-2.0 % Neutrophils # (Auto) 3.9 1.6-8.6 10 ^3/uL Lymphocytes # (Auto) 1.4 0.4-5.4 10 ^3/uL Monocytes # (Auto) 0.4 0-1.3 10 ^3/uL Eosinophils # (Auto) 0.1 0-0.8 10 ^3/uL Basophils # (Auto) 0.1 0-0.2 10 ^3/uL Nucleated Red Blood Cells 0.0 % Sodium Level 141 136-145 mmol/L Potassium Level 3.8 3.5-5.1 mmol/L Chloride Level 106 98-107 mmol/L Carbon Dioxide Level 26 20-31 mmol/L Anion Gap 9 5-15 Blood Urea Nitrogen 13 9-23 mg/dL Creatinine 0.88 0.700-1.30 mg/dL Glomerular Filtration Rate Calc 114 >90 mL/min BUN/Creatinine Ratio 14.8 10.0-20.0 Serum Glucose 123 H 74-106 mg/dL Lactic Acid Level 1.4 0.4-2.0 mmol/L Calcium Level 9.5 8.7-10.4 mg/dL Magnesium Level 1.9 1.6-2.6 mg/dL Total Bilirubin 0.3 0.2-1.0 mg/dL Aspartate Amino Transferase (AST) 13 13-40 U/L Alanine Aminotransferase (ALT) 17 7-40 U/L Alkaline Phosphatase 79 46-116 U/L Troponin I High Sensitivity < 3 L </=54 ng/L Total Protein 7.3 5.7-8.2 g/dL Albumin 4.5 3.2-4.8 g/dL Time of 1ST Reevaluation: 15:26 Reevaluation 1ST: Resolved Patient Education/Counseling: Diagnosis, Treatment Family Education/Counseling: Diagnosis, Treatment Comments MDM: patient presented with the above HPI.--seizure----workup was initiated. patient was found with the above mentioned diagnosis. the following medications were ordered: please refer to order lists of meds and tests obtained by myself Dr. Larry. Patient ED course and VS have been stabilized. Patient has been reassessed in the ED and remained in a stable condition. Pertinent incidental findings were discussed with the patient and/or family. Patient/family voices understanding and is agreeable with plan. Patient has been observed in the ED adequate length of time to insure improvement/stability. Escalation of care considered: Consideration of escalation to observation or admission Patient returned to his baseline prior to arrival. Patient no acute distress. Patient is compliant with his medications. Witnessed seizure without any head injury. No evidence of oral trauma or head or neck injury. Patient was DISCHARGED home in a stable condition. All the reports of any imaging studies that were ordered by myself were reviewed by myself. Departure 1 Departure Time of Disposition: 15:26 Impression: Primary Impression: breakthrough seizure Disposition: HOME / SELF CARE / HOMELESS Condition: Stable Additional Instructions: Additional instructions: Please read all instructions provided in this packet carefully. You MUST follow-up with your primary care/family doctor in 1 to 2 days. If you are unable to see your primary care/family doctor, please return to our emergency room for re-assessment and re-evaluation in 1 to 2 days. Return to the emergency room here in our facility or to the nearest ER [facility] if your symptoms change or worsen. CONSULTATIONS: you MUST Follow-up for consultation as soon as possible with: --neurology in 1-2 days. Please call for appointment. You MUST call the consultants office yourself to make an appointment. You may need to arrange that through your insurance and/or your primary/family doctor. If you are unable to see the portrait consultant in 1 to 2 days, you must return to our emergency room (or any other ER of your choice) for re-assessment and re- evaluation. Adequate fluid hydration. Although you have been discharged from the Emergency Department, this does not mean that you have a "clean bill of health". No definitive diagnosis for your symptoms has been made today. It is possible that you are in the process of developing a serious illness. This is why you must return to the ED without fail if any new or worsening symptoms develop. Seizure precautions. Discharged With: Self Critical Care Note Critical Care Time?: No RONALD ALRRY DO Nov 28, 2024 13:13
[2024-11-28 13:28] LABS: Hematocrit 44.4 % (41.0-53.0); Hemoglobin 15.2 g/dL (13.5-17.5); Mean Corpuscular Hemoglobin 30.8 pg (28.0-32.0); Mean Corpuscular Volume 90.1 fL (80.0-100.0); Nucleated Red Blood Cells % 0.0 %
[2024-11-28 13:44] LABS: Alanine Aminotransferase 17 U/L (7-40); Albumin 4.5 g/dL (3.2-4.8); Alkaline Phosphatase 79 U/L (46-116); Anion Gap 9 (5-15); BUN/Creatinine Ratio 14.8 (10.0-20.0); Blood Urea Nitrogen 13 mg/dL (9-23); Calcium 9.5 mg/dL (8.7-10.4); Carbon Dioxide 26 mmol/L (20-31); Chloride 106 mmol/L (98-107); Magnesium 1.9 mg/dL (1.6-2.6); Potassium 3.8 mmol/L (3.5-5.1); Sodium 141 mmol/L (136-145); Total Protein 7.3 g/dL (5.7-8.2)
[2024-11-28 13:46] LABS: Bilirubin, Total 0.3 mg/dL (0.2-1.0); Glucose 123 mg/dL (74-106)
[2024-11-28 15:00] VITALS: BP 121/71; PULSE 71; RESP 18; O2SAT 95
--- NOTE | 2024-11-28 16:05 | ECG ---
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
== END 2024-11-28 15:42 | disposition home or self-care (01) ==
LOC: ER 12:44 → EDBD 12:44 → ER 15:42
DX: G40.909 Epilepsy, unspecified, not intractable, without status epilepticus (principal); J45.909 Unspecified asthma, uncomplicated; Z79.899 Other long term (current) drug therapy
CPT/HCPCS: 36415; 80053; 82947; 82962; 83605; 83735; 84484; 85025; 93005